=== PATIENT | female | born 1965 | race Caucasian/White ===

== ENCOUNTER 2016-08-10 02:33 | Inpatient (IN) | payer OTHER ==
[2016-08-10] VITALS (12 sets, daily range): BP systolic 99–117; RESP 12–20; TEMP 97.6–99.7; Ht 162.6 cm; Wt 68.5 kg
[~2016-08-10] VITALS: Ht 162.6 cm; Wt 68.5 kg
[2016-08-10] MEDS ORDERED: ONDANSETRON 4 MG VIAL ONE (04:52)
[2016-08-10] MEDS ORDERED: SODIUM CHLORIDE 0.9% 1,000 ML ONE ×2 (04:52→08:27)
[2016-08-10] MEDS ORDERED: DILAUDID 1 MG/ML AMP ONE (05:53)
[2016-08-10] MEDS ORDERED: PIPER/TAZO 3.375 GM PYXIS ONE (06:44)
[2016-08-10] MEDS ORDERED: SODIUM CHLORIDE 0.9% 100 ML IV ONE (06:45)
[2016-08-10] MEDS ORDERED: ROCURONIUM 50 MG VIAL IV ONE (07:34)
[2016-08-10] MEDS ORDERED: FENTANYL 100 MCG/2 ML AMP IV ONE (07:34)
[2016-08-10] MEDS ORDERED: DEXAMETHASONE 4 MG/ML VIAL IV ONE (07:34)
[2016-08-10] MEDS ORDERED: KETOROLAC 30 MG/ML VIAL IV ONE (07:34)
[2016-08-10] MEDS ORDERED: PROPOFOL 20 ML PER ML IV ONE (07:34)
[2016-08-10] MEDS ORDERED: LIDOCAINE 2% SYR 5 ML IV ONE (07:34)
[2016-08-10] MEDS ORDERED: SUCCINYLCHOLINE 20 MG/ML VL IV ONE (07:34)
[2016-08-10] MEDS ORDERED: ONDANSETRON 4 MG VIAL IV PUSH ONE (07:34)
[2016-08-10] MEDS ORDERED: LACT RINGERS 1,000 ML IV SCH ×3 (08:30→10:30)
[2016-08-10] MEDS ORDERED: MORPHINE 4 MG/ML SYR IV ONE (08:30)
[2016-08-10] MEDS ORDERED: PIPERACIL/TAZO 3.375GM/50ML 50 ML IV ONE (08:30)
[2016-08-10] MEDS ORDERED: GLYCOPYRROLATE 0.2 MG/ML VIAL IV ONE ×2 (09:20→09:58)
[2016-08-10] MEDS ORDERED: MIDAZOLAM 2 MG/2 ML INJ IV ONE (09:20)
[2016-08-10] MEDS ORDERED: DILAUDID 1 MG/ML AMP IV PRN (09:40)
[2016-08-10] MEDS ORDERED: ONDANSETRON 4 MG VIAL IV PRN ×2 (09:40→10:30)
[2016-08-10] MEDS ORDERED: MORPHINE 2 MG/ML SYR IV PRN ×2 (09:40→10:30)
[2016-08-10] MEDS ORDERED: MORPHINE 4 MG/ML SYR IV PRN (09:40)
[2016-08-10] MEDS ORDERED: OXYCODONE 5 MG TAB PO PRN (09:40)
[2016-08-10] MEDS ORDERED: BUPIVACA/EPI 0.25% PF 30ML NERVEBLOCK ONE (09:58)
[2016-08-10] MEDS ORDERED: SALINE FLUSH 10 ML FLUSH PRN (10:30)
[2016-08-10] MEDS: MEPERIDINE 25 MG/ML IV PRN ×2 (10:54→11:09)
[2016-08-10] MEDS: PIPERACIL/TAZO 3.375GM/50ML 50 ML IV SCH ×2 (12:07→18:37)
[2016-08-10] MEDS: OXYCODONE 5 MG TAB PO PRN ×3 (14:43→23:36)
[2016-08-10] MEDS ORDERED: ACETAMINOPHEN 325 MG TAB PO PRN (16:35)
[2016-08-10] MEDS: SALINE FLUSH 10 ML FLUSH SCH (20:00)
[2016-08-11] MEDS: PIPERACIL/TAZO 3.375GM/50ML 50 ML IV SCH ×4 (00:01→17:56)
[2016-08-11 03:13] VITALS: BP_SYST 98; RESP 18; TEMP 97.8
[2016-08-11] MEDS: SODIUM CHLORIDE 0.9% FLUSH BAG 500 ML IV SCH (06:00)
[2016-08-11] MEDS: OXYCODONE 5 MG TAB PO PRN ×4 (06:27→20:11)
[2016-08-11 07:20] VITALS: BP_SYST 103; RESP 16; TEMP 97.9
[2016-08-11] MEDS: SALINE FLUSH 10 ML FLUSH SCH ×2 (07:39→20:00)
[2016-08-11 10:39] VITALS: BP_SYST 114; RESP 16; TEMP 97.8
[2016-08-11 14:44] VITALS: BP_SYST 107; RESP 16; TEMP 97.9
[2016-08-11 19:20] VITALS: BP_SYST 121; RESP 16; TEMP 98.1
[2016-08-11] MEDS ORDERED: MIDAZOLAM 2 MG/2 ML INJ ONE (22:53)
[2016-08-12] VITALS: BP_SYST 110; RESP 16; TEMP 98.2
[2016-08-12] MEDS: PIPERACIL/TAZO 3.375GM/50ML 50 ML IV SCH ×2 (00:07→06:12)
[2016-08-12] MEDS: OXYCODONE 5 MG TAB PO PRN ×3 (00:08→08:48)
[2016-08-12 03:55] VITALS: BP_SYST 115; RESP 6; TEMP 98.5
[2016-08-12] MEDS: SODIUM CHLORIDE 0.9% FLUSH BAG 500 ML IV SCH (06:00)
[2016-08-12 07:06] VITALS: BP_SYST 109; RESP 16; TEMP 97.8
[2016-08-12] MEDS: SALINE FLUSH 10 ML FLUSH SCH (08:00)
[2016-08-12 08:53] VITALS: BP_SYST 109; RESP 16; TEMP 97.8
== END 2016-08-12 10:31 | disposition home or self-care (01) | DRG 343 ==
LOC: ER 02:33 → SURG 08:07 → EMR 10:29 → 5THE 11:33
PROVIDERS: ADMIT Surgery; ATTEND Surgery
PROC: 0DTJ4ZZ Resection of Appendix, Percutaneous Endoscopic Approach (ICD-10-PCS; principal; 2016-08-10 09:45)
DX: K35.80 Unspecified acute appendicitis (principal)
CPT/HCPCS: 36415; 74176; 80053; 81001; 83690; 85025; 88304; 94799; 96361; 96365; 96375